=== PATIENT | male | born 2000 | race Caucasian/White ===

== ENCOUNTER 2020-07-04 15:26 | Emergency (ER) | payer OTHER, SELFPAY ==
[2020-07-04] VITALS (18 sets, daily range): BP systolic 106–141; BP diastolic 69–96; PULSE 58–79; RESP 12–20; TEMP 36.1; O2SAT 98–100
--- NOTE | ~2020-07-04 | CT_ITS ---
EXAMINATION: CT abdomen pelvis w con EXAM DATE: 07/04/2020 17:30 INDICATION: Abdominal pain with GI bleeding . TECHNIQUE: Spiral CT of the abdomen and pelvis was performed following intravenous injection of 100 m L Omnipaque 350. Axial, coronal and sagittal images were reviewed. The dose-length product (DLP) fo r this examination was 450.53 mGy-cm. The exposure was tailored according to patient size (auto mA e xposure control), and iterative reconstruction (ASIR) was used as additional dose reduction technique . There is no prior study for comparison. FINDINGS: The liver, spleen, adrenal glands and pancreas are unremarkable. Gallbladder is unremarkab le. No biliary obstruction. Portal and splenic veins are patent. Kidneys enhance symmetrically. T here is no hydronephrosis. The prostate is unremarkable. The bladder is unremarkable. There is no retroperitoneal or pelvic lymphadenopathy. There is only small amount of ascending colonic stool, remaining colon is collapsed, except for maybe small amount of rectosigmoid fluid. The wall of this complex segment appears mildly diffusely thicke hipolito, possible mild colitis. No pneumatosis. The appendix is not positively visualized. There is no p ericecal inflammatory change to suggest appendicitis. The stomach and small bowel are unremarkable. No free intraperitoneal gas. The heart is normal in size. There are no pericardial or pleural e ffusions. The lung bases are unremarkable. There are no osteoblastic or osteolytic lesions identifi ed. IMPRESSION: Possible transverse, descending, sigmoid colonic mild colitis. Reviewed, dictated and finalized at location A.
[2020-07-04 16:05] LABS: Basophils Absolute Auto 0.1 K/mm3 (0.0-0.1); Basophils Percent Auto 0.6 % (0.2-1.2); Eosinophils Absolute Auto 0.1 K/mm3 (0-0.3); Hematocrit 45.4 % (42.0-52.0); Hemoglobin 15.9 g/dL (14.0-18.0); Immature Granulocyte Absolute 0.04 K/mm3 (0.00-0.031); Immature Granulocyte Percent A 0.5 % (0-0.5); Lymphocytes Absolute Auto 2.11 K/mm3 (0.9-3.2); Lymphocytes Percent Auto 25.5 % (18.3-44.2); Mean Corpuscular Hemoglobin 30.7 pg (26-34); Mean Corpuscular Volume 87.6 fl (80-100); Mean Platelet Volume 10.1 fl (7.4-10.4); Monocytes Absolute Auto 0.5 K/mm3 (0.1-0.6); Neutrophils Absolute Auto 5.5 K/mm3 (1.3-6.7); Neutrophils Percent Auto 66.4 % (45.5-73.1); Platelet Count Result 207 k/mm3 (150-375); Red Blood Count 5.18 M/mm3 (4.6-6.20); Red Cell Distribution Width 11.4 % (11.5-14.5); White Blood Count 8.3 K/mm3 (4.5-10.0)
[2020-07-04 16:15] LABS: Partial Thromboplastin Time 28.2 SECONDS (22.3-36.8)
[2020-07-04 16:16] LABS: Alanine Aminotransferase 23 U/L (4-50); Albumin Level 4.9 g/dL (3.5-5.1); Alkaline Phosphatase 65 U/L (38-126); Anion Gap 9 mmol/L (8-16); Aspartate Amino Transferase 26 U/L (17-59); Bilirubin,Total 0.6 mg/dL (0.2-1.3); Blood Urea Nitrogen 15 mg/dL (9-20); Calcium 9.5 mg/dL (8.4-10.2); Carbon Dioxide 28 mmol/L (22-30); Chloride 103 mmol/L (98-107); Estimated CRCL calculation 144 ml/min; Estimated Glomerular Filt Rate > 60; Glucose 96 mg/dL (75-110); Sodium 140 mmol/L (137-145)
--- NOTE | 2020-07-04 17:59 | ED.GIBLEED ---
HPI - GI Bleed General Chief complaint: GI Bleed Stated complaint: RECTAL BLEEDING Time Seen by Provider: 07/04/20 16:12 Source: patient Mode of arrival: ambulatory Limitations: no limitations History of Present Illness HPI Narrative: Patient presents emergency department for evaluation of 2 episodes of bowel movement that was accompanied by a concerning amount of bright red blood when at noon and again at 3:30 PM. Patient denies watery diarrhea or gross blood coming from his rectum. Patient denies fever, chills, nausea, vomiting, dizziness, weakness, lethargy. Patient reports some diffuse abdominal discomfort. Patient denies having rectal bleeding before although he reports at times he does have some soreness around his anus after bowel movements. He has never been formally diagnosed with hemorrhoids. Patient has not taking any medications for his symptoms. Related Data Allergies Allergy/AdvReac Type Severity Reaction Status Date / Time No Known Allergies Allergy Verified 07/04/20 15:52 Review of Systems Review of Systems: Narrative: CONSTITUTIONAL: Denies fever, chills, or sweats. EYES: Denies visual changes, redness, or discharge. ENT: Denies rhinorrhea, congestion, sore throat, or otalgia. CARDIOVASCULAR: Denies chest pain, palpitations, or edema. RESPIRATORY: Denies cough or dyspnea. GASTROINTESTINAL: Reports blood in stools and diffuse abdominal pain. Intermittent nausea denies vomiting, or diarrhea. GENITOURINARY: Denies dysuria or hematuria. SKIN: Denies rash or itching. MUSCULOSKELETAL: Denies back pain, myalgia, or joint pain NEUROLOGIC: Denies headache, numbness, dizziness, or weakness. PSYCHIATRIC: Denies anxiety or depression. Exam Narrative: Exam Narrative: GENERAL: Well-appearing, well-nourished, and in no acute distress. HEAD: Normocephalic, atraumatic. EYES: PERRLA and EOMI. ENT: Nares clear, no rhinorrhea or epistaxis. Mucous membranes moist. Oropharynx without tonsillar hypertrophy exudate or other lesions. Bilateral TMs pearly lind nonbulging NECK: Supple. No adenopathy or masses. No carotid bruits or JVD CHEST: Clear to auscultation. No respiratory distress. No wheezes rales or rhonchi HEART: Regular rate and rhythm. No murmur heard. Normal peripheral pulses. ABDOMEN: Soft, some diffuse left-sided tenderness, nondistended, normal active bowel sounds. RECTUM: No thrombosed hemorrhoids noted. There is tenderness with insertion of digit in the rectum. Gross blood not noted on glove but Hemoccult was positive. EXTREMITIES: Normal range of motion. No edema. SKIN: Warm, dry, no rash. NEURO: No focal deficits. Alert and oriented x3. PSYCH: Normal mood and affect. Course Course Emergency Course: Patient in bed resting comfortably. He denies need for pain medication at this time. Vital Signs Vital signs: Vital Signs Temperature 97 F L 07/04/20 15:47 Pulse Rate 65 07/04/20 15:47 Respiratory Rate 20 07/04/20 15:47 Blood Pressure 141/96 H 07/04/20 15:47 Pulse Oximetry 100 07/04/20 15:47 Temperature 97 F L 07/04/20 15:47 Pulse Rate 65 07/04/20 15:47 Respiratory Rate 20 07/04/20 15:47 Blood Pressure 141/96 H 07/04/20 15:47 Pulse Oximetry 100 07/04/20 15:47 MDM - GI Bleed MDM Narrative Medical decision making narrative: I consulted Dr. Freddie Olsen GI specialist regarding patient vitals, presentation, CT. He states to treat the patient as infectious colitis and prescribed Cipro and Flagyl for 5 days and have the patient follow-up with him in the office. They will discuss possible colonoscopy and stool culture if diarrhea presents. Patient denies any discomfort and resting comfortably in his room. He verbalizes understanding of plan and denies any other questions or concerns. Differential Diagnosis Differential diagnosis: Likely hemorrhoids, infectious diarrhea, esophageal varices, gastritis, Lizz-Adames syndrome, Upper gastrointestinal hemorrhage, Lower gastroin
== END 2020-07-04 18:42 | disposition home or self-care (01) ==
PROVIDERS: Emergency Provider Emergency Medicine
DX: K52.9 Noninfective gastroenteritis and colitis, unspecified (principal)
CPT/HCPCS: 36415; 74177; 80053; 85025; 85610; 85730; 86850; 86900; 86901; 99284; Q9967

== ENCOUNTER 2020-08-31 22:57 | Emergency (ER) | payer OTHER, SELFPAY ==
[2020-08-31 23:05] VITALS: BP 136/87; PULSE 70; RESP 14; TEMP 37.4; O2SAT 96
--- NOTE | 2020-08-31 23:18 | ED.GENADULT ---
HPI - General Adult General Chief complaint: Unspecified Stated complaint: Hemorroids Time Seen by Provider: 08/31/20 23:09 History of Present Illness HPI narrative: Patient is a 19-year-old gentleman who presents to emergency department with chief complaint of hemorrhoid. The patient states that he was doing okay today had a haircut and then was at work and suddenly had a area protrude in his rectal area that was exquisitely painful. Patient states it hurts whenever he defecates denies bleeding patient reports he had history of internal hemorrhoids before in the past but has never had an external hemorrhoid before. Patient denies fever denies chills denies hard stool Related Data Allergies Allergy/AdvReac Type Severity Reaction Status Date / Time No Known Allergies Allergy Verified 08/31/20 23:15 Review of Systems Review of Systems: Narrative: A 10 system review of systems was completed on the patient and is negative except for what is stated in the HPI. Nursing and ancillary documentation was reviewed. 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 HEAD: Normocephalic, atraumatic. EYES: PERRLA and EOMI. ENT: Nares clear, no rhinorrhea or epistaxis. Mucous membranes moist. NECK: Supple. CHEST: Clear to auscultation. No respiratory distress. HEART: Regular rate and rhythm. No murmur heard. Normal peripheral pulses. ABDOMEN: Soft, nontender, nondistended, normal active bowel sounds. EXTREMITIES: Normal range of motion. No edema. : There is a 1 cm sized external hemorrhoid that is nonthrombosed SKIN: Warm, dry, no rash. NEURO: No focal deficits. Alert and oriented x3. PSYCH: Normal mood and affect. Course Vital Signs Vital signs: Vital Signs Temperature 37.4 C 08/31/20 23:05 Pulse Rate 70 08/31/20 23:05 Respiratory Rate 14 08/31/20 23:05 Blood Pressure 136/87 08/31/20 23:05 Pulse Oximetry 96 08/31/20 23:05 Temperature 37.4 C 08/31/20 23:05 Pulse Rate 70 08/31/20 23:05 Respiratory Rate 14 08/31/20 23:05 Blood Pressure 136/87 08/31/20 23:05 Pulse Oximetry 96 08/31/20 23:05 Medical Decision Making Vital Signs Vital Signs: Vital Signs Temperature 37.4 C 08/31/20 23:05 Pulse Rate 70 08/31/20 23:05 Respiratory Rate 14 08/31/20 23:05 Blood Pressure 136/87 08/31/20 23:05 Pulse Oximetry 96 08/31/20 23:05 Temperature 37.4 C 08/31/20 23:05 Pulse Rate 70 08/31/20 23:05 Respiratory Rate 14 08/31/20 23:05 Blood Pressure 136/87 08/31/20 23:05 Pulse Oximetry 96 08/31/20 23:05 Discharge Plan Discharge Clinical Impression: External hemorrhoid Patient Disposition: Home, Self-Care Condition: Stable Instructions: Antibiotic Form, Hemorrhoids (ED), Sitz Bath (DC) Prescriptions: New hydrocortisone [Anusol-HC] 2.5 % cream with perineal applicator 1 applic ME DAILY PRN (Reason: pain) Qty: 30 RF: 0 No Action ciprofloxacin HCl [Cipro] 500 mg tablet 500 mg PO Q12H Qty: 10 RF: 0 metronidazole [Flagyl] 500 mg tablet 500 mg PO Q12H Qty: 10 RF: 0 lidocaine [Hemorrhoidal Relief] 5 % cream 1 applic topical QID PRN (Reason: pain) Qty: 15 RF: 0 Follow-up/Referrals: PHYSICIAN,C[employer]PERVISOR [Primary Care Provider] - Lupis Brown DO [Physician] - 1 Week Time of Disposition: 23:26
== END 2020-08-31 23:40 | disposition home or self-care (01) ==
LOC: ANHED 23:25
PROVIDERS: Emergency Provider Emergency Medicine
DX: K64.4 Residual hemorrhoidal skin tags (principal)
CPT/HCPCS: 99283